=== PATIENT | female | born 1960 | race Caucasian/White ===

== ENCOUNTER → 2016-08-13 | Outpatient (CLI) | payer OTHER ==
[~2016-08-13] MED LIST: ACET500T37 PO; AMIT25TA PO; AMLO10TA2 PO; ASPI1TAB PO; ESTR1TAB PO; FLON0.054; IBUP200C PO; IBUP800T; METO25TAB PO; MOTR200T44 PO; PERC5TAB6 PO; PROA1AER INH; SERT25TA PO; TYLE325T5 PO; VITA50TA15 PO; ZOLO50TA
--- NOTE | 2016-08-14 09:31 | DEXA ---
AP SPINE L1 - L4 1.007 -1.5 -1.0 LT FEMUR TOTAL 0.849 -1.3 -0.8 RT FEMUR TOTAL 0.899 -0.9 -0.4 TOTAL BODY TOTAL OTHER DUAL FEMUR FRAX* ASSESSMENT Risk factors: Premature menopause. 10 year probability of fracture Major osteoporotic fracture 7.2 % Hip fracture 0.8 % COMMENTS: There is low bone density of the spine and hips. The density of the spine has decreased 6.9% since 07/18/2001. The density of the left hip has increased 4.4% since 07/18/2001. The density of the right hip has increased 1.4% since 07/18/2001. FOLLOW-UP: Recommendation for the next bone density exam: 2 years. KATHY
== END ==
LOC: M WHC 12:43
PROVIDERS: ATTEND Obstetrics & Gynecology
DX: Z13.820 Encounter for screening for osteoporosis (principal)

== ENCOUNTER → 2016-08-16 | Outpatient (CLI) | payer OTHER ==
--- NOTE | 2016-08-16 15:49 | REP ---
Digital diagnostic bilateral mammography and focused left breast sonography: History: Palpable left breast lump 1 cm in diameter at 3 o'clock position at the outer areolar complex. No comparison imaging. Mammographic findings: Routine views of the left breast were obtained with skin marker affixed to the skin at the site of the palpable lump. These are augmented by magnified focal spot compression CC, MLO and true MLO views of the left breast. These demonstrate that the breast parenchyma is heterogeneously dense bilaterally in a pattern, which may inhibit the sensitivity of mammography. No dominant density is seen at the site of the palpable lump in the left breast or elsewhere on either side mammographically. No architectural distortion is seen. No spiculation or suspicious microcalcification is seen. No worrisome skin change is appreciated. Sonographic findings: The left breast is scanned from 12 o'clock to 3 o'clock. At 3 o'clock just adjacent to the nipple, there is a 6 x 5 x 4 mm cyst with slightly thickened kang. This likely corresponds to the palpable abnormality. It does not meet criteria of a simple cyst and is probably a complex cyst. Heterogeneous fibroglandular background echotexture is seen. Impression: BIRADS category 4 suspicious left breast imaging. Complex cystic structure is seen at the site of the palpable lump by ultrasound in the left breast at 3 o'clock position. Ultrasound-guided cyst aspiration and/or needle biopsy suggested. This mammogram was interpreted with the aid of an FDA-approved computer-aided detection system. The patient states she/he had a clinical breast exam in July 2016 The patient letter being requested is m 4 dense . Signed by Leo Foster MD 08/16/2016 04:49 P
== END ==
LOC: M RAD 13:24
PROVIDERS: ATTEND Obstetrics & Gynecology
DX: Z12.31 Encounter for screening mammogram for malignant neoplasm of breast (principal)

== ENCOUNTER → 2016-10-24 | Outpatient (REF) | payer OTHER ==
[~2016-10-24] MED LIST changes: +ACET-683 PO; -ACET500T37 PO; -IBUP200C PO; +IBUP200C10 PO; +PERC5TAB12 PO; -PERC5TAB6 PO; -PROA1AER INH; +PROAAER10 INH; +ZITHTAB PO
[2016-10-24 17:13] LABS: ALBUMIN/GLOBULIN RATIO 1.03 (1.00-1.93); ALKALINE PHOSPHATASE 95 U/L (45-117); ALT/SGPT 26 U/L (12-78); ANION GAP 6 MEQ/L (8-16); AST/SGOT 14 U/L (15-37); BASO % 0.3 % (0.0-1.0); BILIRUBIN,TOTAL 0.5 MG/DL (0.2-1.0); BLOOD UREA NITROGEN 10 MG/DL (7-18); CALCIUM LEVEL 9.5 MG/DL (8.5-10.1); CARBON DIOXIDE LEVEL 30 MEQ/L (21-32); CHLORIDE LEVEL 106 MEQ/L (98-107); CHOLESTEROL LEVEL 227 MG/DL (<200); CREATININE FOR GFR 0.77 MG/DL (0.55-1.02); EOS # 0.2 K/mm3 (0.0-0.50); EOS % 2.8 % (0.0-3.0); FREE T4 1.01 NG/DL (0.76-1.46); GLOMERULAR FILTRATION RATE > 60.0 (>51); GLUCOSE, FASTING 89 MG/DL (70-105); LARGE UNSTAINED CELL # 0.1 K/mm3 (0.0-0.4); LARGE UNSTAINED CELL % 1.5 % (0.0-4.0); LYMPH # 1.5 K/mm3 (1.5-4.5); LYMPH % 21.2 % (24.0-44.0); MEAN CORPUSCULAR HEMOGLOBIN 29.7 pg (27.0-33.0); MEAN CORPUSCULAR HGB CONC 32.9 g/dl (32.0-36.5); MEAN CORPUSCULAR VOLUME 90.3 fl (80.0-96.0); MONO # 0.3 K/mm3 (0.0-0.8); MONO % 4.9 % (0.0-5.0); NEUTROPHILS # 4.7 K/mm3 (1.8-7.7); NEUTROPHILS % 69.3 % (36.0-66.0); PLATELET COUNT, AUTOMATED 232 k/mm3 (150-450); POTASSIUM SERUM 4.2 MEQ/L (3.5-5.1); RED CELL DISTRIBUTION WIDTH 13.2 % (11.5-14.5); SODIUM LEVEL 142 MEQ/L (136-145); TOTAL PROTEIN 7.9 GM/DL (6.4-8.2); TRIGLYCERIDES LEVEL 190 MG/DL (<150); VITAMIN B12 LEVEL 1118 PG/ML (247-911); WHITE BLOOD COUNT 6.8 K/mm3 (4.0-10.0)
== END ==
LOC: M SFHCCAPE 10:54
PROVIDERS: ATTEND Physician Assistant
DX: I10 Essential (primary) hypertension (principal); R53.81 Other malaise

== ENCOUNTER → 2016-10-30 | Outpatient (REF) | payer OTHER ==
[2016-10-30 14:38] LABS: FOLLICLE STIMULATING HORMONE 67.3 mIU/mL; LUTEINIZING HORMONE 33.6 mIU/mL
== END ==
LOC: M LAB REF 13:49
PROVIDERS: ATTEND Obstetrics & Gynecology
DX: N95.9 Unspecified menopausal and perimenopausal disorder (principal)

== ENCOUNTER 2017-01-04 16:42 | Emergency (ER) | payer OTHER ==
[~2017-01-04] VITALS: Ht 170.2 cm; Wt 79.5 kg
[~2017-01-04 16:42] MED LIST changes: -ZITHTAB PO
[2017-01-04] MEDS ORDERED: ZITHTAB PO (18:37)
[2017-01-04 18:44] VITALS: BP 166/86
== END 2017-01-04 18:47 | disposition home or self-care (01) ==
LOC: M ED 16:42
DX: J20.9 Acute bronchitis, unspecified (principal); I10 Essential (primary) hypertension; G43.909 Migraine, unspecified, not intractable, without status migrainosus; J45.990 Exercise induced bronchospasm; Z79.899 Other long term (current) drug therapy; Z88.0 Allergy status to penicillin; Z88.8 Allergy status to other drugs, medicaments and biological substances; Z88.5 Allergy status to narcotic agent; Z91.89 Other specified personal risk factors, not elsewhere classified; Z91.040 Latex allergy status; Z91.013 Allergy to seafood; Z88.2 Allergy status to sulfonamides; Z88.1 Allergy status to other antibiotic agents

== ENCOUNTER → 2017-01-09 | Outpatient (CLI) | payer OTHER ==
[~2017-01-09] MED LIST changes: +ZITHTAB PO
--- NOTE | 2017-01-09 16:00 | REP ---
Chest two views HISTORY: Bronchitis Comparison: 04/19/2005 Linear densities are present in the left lower lobe consistent with scar. The right lung is clear. The heart is normal in size. The pulmonary vasculature is normal in appearance. The bony structure is intact. IMPRESSION: Left lower lobe scar. Signed by Yazan Sun MD 01/09/2017 03:51 P
== END ==
LOC: M RAD 14:58
PROVIDERS: ATTEND Physician Assistant
DX: J40 Bronchitis, not specified as acute or chronic (principal)

== ENCOUNTER → 2017-04-26 | Outpatient (REF) | payer OTHER ==
[2017-04-26 15:38] LABS: PROGESTERONE 1.6 NG/ML
[2017-04-26 15:39] LABS: ESTRADIOL 54.6 PG/ML; FOLLICLE STIMULATING HORMONE 21.5 mIU/mL
[2017-04-30 00:06] LABS: TESTOSTERONE FREE (DIRECT) 3.2 pg/mL (0.0-4.2)
== END ==
LOC: M LAB REF 14:51
DX: N95.1 Menopausal and female climacteric states (principal)

== ENCOUNTER → 2017-04-30 | Outpatient (REF) | payer OTHER ==
[2017-04-30 20:18] LABS: BASO % 0.4 % (0.0-1.0); EOS # 0.3 10^3/uL (0.0-0.50); EOS % 4.6 % (0.0-3.0); HEMATOCRIT 40.6 % (36.0-47.0); HEMOGLOBIN 13.6 g/dl (12.0-16.0); IMMATURE GRANULOCYTE % 0.2 % (0-3.0); LYMPH # 1.3 10^3/uL (1.5-4.5); LYMPH % 23.8 % (24.0-44.0); MEAN CORPUSCULAR HEMOGLOBIN 29.6 pg (27.0-33.0); MEAN CORPUSCULAR HGB CONC 33.5 g/dl (32.0-36.5); MEAN CORPUSCULAR VOLUME 88.5 fl (80.0-96.0); MONO # 0.5 10^3/uL (0.0-0.8); MONO % 8.5 % (0.0-5.0); NEUTROPHILS # 3.5 10^3/uL (1.8-7.7); NEUTROPHILS % 62.5 % (36.0-66.0); PLATELET COUNT, AUTOMATED 267 10^3/uL (150-450); RED BLOOD COUNT 4.59 10^6/uL (4.00-5.40); RED CELL DISTRIBUTION WIDTH 13.1 % (11.5-14.5); WHITE BLOOD COUNT 5.6 10^3/uL (4.0-10.0)
[2017-04-30 20:30] LABS: TOTAL 25(OH) VITAMIN D 44.2 NG/ML (30.0-100.0)
[2017-04-30 20:35] LABS: ALBUMIN 3.9 GM/DL (3.2-5.2); ALBUMIN/GLOBULIN RATIO 1.08 (1.00-1.93); ALKALINE PHOSPHATASE 85 U/L (45-117); ALT/SGPT 20 U/L (12-78); ANION GAP 8 MEQ/L (8-16); AST/SGOT 16 U/L (7-37); BILIRUBIN,TOTAL 0.4 MG/DL (0.2-1.0); BLOOD UREA NITROGEN 10 MG/DL (7-18); C REACTIVE PROTEIN QUANTITATIV 1.21 MG/DL (0.00-0.30); CALCIUM LEVEL 8.7 MG/DL (8.5-10.1); CARBON DIOXIDE LEVEL 24 MEQ/L (21-32); CHLORIDE LEVEL 108 MEQ/L (98-107); CHOLESTEROL LEVEL 168 MG/DL (<200); CHOLESTEROL RISK RATIO 3.111 (<5); FREE T4 0.89 NG/DL (0.76-1.46); GLOMERULAR FILTRATION RATE > 60.0 (>51); GLUCOSE, FASTING 99 MG/DL (70-100); HDL CHOLESTEROL 54 MG/DL (>40); LDL CHOLESTEROL 98.4 MG/DL (<100); NON-HDL-C 114 MG/DL; POTASSIUM SERUM 4.3 MEQ/L (3.5-5.1); RHEUMATOID FACTOR QUANT < 10.0 IU/ML (0-15.0); SODIUM LEVEL 140 MEQ/L (136-145); TOTAL PROTEIN 7.5 GM/DL (6.4-8.2); TRIGLYCERIDES LEVEL 78 MG/DL (<150); URIC ACID 4.9 MG/DL (2.6-6.0)
[2017-04-30 20:58] LABS: ERYTHROCYTE SEDIMENTATION RATE 29 mm/hr (0-30)
[2017-05-03 00:06] LABS: CYCLIC CITRULLINATED PEPTIDE 5 units (0-19)
[2017-05-03 00:06] LABS: ANTINUCLEAR ANTIBODIES DIRECT Negative (Negative); Lyme Disease IgG/IgM Antibodie <0.91 ISR (0.00-0.90); Lyme Disease IgM Ab Quantitati <0.80 index (0.00-0.79)
== END ==
LOC: M SFHCCAPE 09:16
DX: M25.50 Pain in unspecified joint (principal); I10 Essential (primary) hypertension

== ENCOUNTER → 2017-05-02 | Outpatient (CLI) | payer OTHER | LOC: M LAB 12:58 | DX: M51.36 Other intervertebral disc degeneration, lumbar region (principal); M25.50 Pain in unspecified joint | CPT/HCPCS: 72110 ==

== ENCOUNTER → 2017-07-10 | Outpatient (REF) | LOC: M SMT 09:32 | DX: Z02.71 Encounter for disability determination (principal); M51.36 Other intervertebral disc degeneration, lumbar region; M25.78 Osteophyte, vertebrae ==

== ENCOUNTER → 2018-01-09 | Outpatient (REF) | payer OTHER ==
[2018-01-09 19:40] LABS: BASO % 0.5 % (0.0-1.0); EOS # 0.2 10^3/uL (0.0-0.50); EOS % 3.8 % (0.0-3.0); HEMATOCRIT 39.1 % (36.0-47.0); IMMATURE GRANULOCYTE % 0.2 % (0-3.0); LYMPH # 1.4 10^3/uL (1.5-4.5); LYMPH % 21.2 % (24.0-44.0); MEAN CORPUSCULAR HEMOGLOBIN 29.1 pg (27.0-33.0); MEAN CORPUSCULAR HGB CONC 33.2 g/dl (32.0-36.5); MEAN CORPUSCULAR VOLUME 87.7 fl (80.0-96.0); MONO # 0.5 10^3/uL (0.0-0.8); MONO % 7.1 % (0.0-5.0); NEUTROPHILS # 4.3 10^3/uL (1.8-7.7); NEUTROPHILS % 67.2 % (36.0-66.0); PLATELET COUNT, AUTOMATED 263 10^3/uL (150-450); RED BLOOD COUNT 4.46 10^6/uL (4.00-5.40); RED CELL DISTRIBUTION WIDTH 14.4 % (11.5-14.5); WHITE BLOOD COUNT 6.4 10^3/uL (4.0-10.0)
[2018-01-09 20:04] LABS: ALBUMIN 3.5 GM/DL (3.2-5.2); ALKALINE PHOSPHATASE 91 U/L (45-117); ALT/SGPT 21 U/L (12-78); ANION GAP 9 MEQ/L (8-16); AST/SGOT 16 U/L (7-37); BILIRUBIN,TOTAL 0.3 MG/DL (0.2-1.0); BLOOD UREA NITROGEN 7 MG/DL (7-18); C REACTIVE PROTEIN QUANTITATIV 1.47 MG/DL (0.00-0.30); CALCIUM LEVEL 8.6 MG/DL (8.5-10.1); CARBON DIOXIDE LEVEL 26 MEQ/L (21-32); CHLORIDE LEVEL 106 MEQ/L (98-107); CHOLESTEROL LEVEL 188 MG/DL (<200); CHOLESTEROL RISK RATIO 3.836 (<5); GLOMERULAR FILTRATION RATE > 60.0 (>51); GLUCOSE, FASTING 87 MG/DL (70-100); HDL CHOLESTEROL 49 MG/DL (>40); LDL CHOLESTEROL 97 MG/DL (<100); NON-HDL-C 139 MG/DL; POTASSIUM SERUM 4.3 MEQ/L (3.5-5.1); RHEUMATOID FACTOR QUANT < 10.0 IU/ML (<15.0); SODIUM LEVEL 141 MEQ/L (136-145); TOTAL 25(OH) VITAMIN D 22.9 NG/ML (30.0-100.0); TRIGLYCERIDES LEVEL 209 MG/DL (<150)
[2018-01-09 20:07] LABS: ERYTHROCYTE SEDIMENTATION RATE 30 mm/hr (0-30)
[2018-01-13 00:07] LABS: CYCLIC CITRULLINATED PEPTIDE 6 units (0-19)
[2018-01-13 00:07] LABS: SSA SJOGRENS A <0.2 AI (0.0-0.9); SSB SJOGRENS B <0.2 AI (0.0-0.9)
== END ==
LOC: M SFHCCAPE 09:27
DX: I10 Essential (primary) hypertension (principal); M25.50 Pain in unspecified joint

== ENCOUNTER 2018-08-13 11:54 | Day surgery (SDC) | payer OTHER ==
[~2018-08-13] VITALS: Ht 160 cm; Wt 83.4 kg
[~2018-08-13 11:54] MED LIST changes: +ALBU1.25 INH; -AMLO10TA2 PO; +AMLO10TA5 PO; -ASPI1TAB PO; +ASPI81TA26 PO; +GABA-843 PO; -IBUP200C10 PO; +IBUP200C25 PO; +METO1TAB63 PO; +METO1TAB87 PO; -METO25TAB PO; +NS 1,000 ML IV ONE; +OMEP-221 PO; +OSEL75CA PO; +PRED20TA PO; -SERT25TA PO; +SERT25TA85 PO; +TESS100C PO; +TIZA2CAP PO; +VITA500T3 PO; +ZOLO100T PO
[2018-08-13] MEDS ORDERED: VITAD1000T PO (13:02)
[2018-08-13] MEDS ORDERED: PROPOFOL 200 MG/20 ML VIAL As Ordered ONE (14:13)
[2018-08-13] MEDS ORDERED: LIDOCAINE 2% INJ 100 MG/5 ML SDV (FOR ANES.) As Ordered ONE (14:13)
--- NOTE | 2018-08-13 14:37 | ROOR ---
Patient Name: Nikki Jenkins Procedure Date: 08/13/2018 2:07 PM Date of : 1960 Age: 58 Room: [facility] Gender: Female Note Status: Finalized Procedure: Colonoscopy Indications: Screening for colorectal malignant neoplasm Providers: Robert Ga MD Referring MD: THUAN Jade [id number] Requesting Provider: Medicines: Monitored Anesthesia Care Complications: No immediate complications. Procedure: Pre-Anesthesia Assessment: - Prior to the procedure, a History and Physical was performed, and patient medications and allergies were reviewed. The patient is competent. The risks and benefits of the procedure and the sedation options and risks were discussed with the patient. All questions were answered and informed consent was obtained. Patient identification and proposed procedure were verified by the physician, the nurse and the anesthesiologist in the endoscopy suite. Mental Status Examination: alert and oriented. Airway Examination: normal oropharyngeal airway and neck mobility. Respiratory Examination: clear to auscultation. CV Examination: normal. Prophylactic Antibiotics: The patient does not require prophylactic antibiotics. Prior Anticoagulants: The patient has taken aspirin, last dose was 1 day prior to procedure. ASA Grade Assessment: II - A patient with mild systemic disease. After reviewing the risks and benefits, the patient was deemed in satisfactory condition to undergo the procedure. The anesthesia plan was to use monitored anesthesia care (MAC). Immediately prior to administration of medications, the patient was re-assessed for adequacy to receive sedatives. The heart rate, respiratory rate, oxygen saturations, blood pressure, adequacy of pulmonary ventilation, and response to care were monitored throughout the procedure. The physical status of the patient was re-assessed after the procedure. The Colonoscope was introduced through the anus and advanced to the cecum, identified by appendiceal orifice and ileocecal valve. The colonoscopy was performed without difficulty. The colonoscopy was somewhat difficult due to a tortuous colon. Successful completion of the procedure was aided by applying abdominal pressure. The patient tolerated the procedure well. The quality of the bowel preparation was good. Findings: Hemorrhoids were found on perianal exam. A few small-mouthed diverticula were found in the sigmoid colon. The entire examined colon appeared normal on direct and retroflexion views. Impression: - Hemorrhoids found on perianal exam. - Diverticulosis in the sigmoid colon. - The entire examined colon is normal on direct and retroflexion views. - No specimens collected. Recommendation: - Discharge patient to home (ambulatory). - Repeat colonoscopy in 10 years for screening purposes. Robert Ga MD Robert Ga MD 08/13/2018 2:37:04 PM Electronically signed by Robert Ga MD Number of Addenda: 0 Note Initiated On: 08/13/2018 2:07 PM Estimated Blood Loss: Estimated blood loss: none.
[2018-08-13 14:57] VITALS: BP 129/80
== END 2018-08-13 15:15 | disposition home or self-care (01) ==
LOC: M OPP 11:54
PROVIDERS: ATTEND Surgery
DX: K57.30 Diverticulosis of large intestine without perforation or abscess without bleeding (principal); K64.9 Unspecified hemorrhoids; Z12.11 Encounter for screening for malignant neoplasm of colon

== ENCOUNTER → 2018-10-14 | Outpatient (REF) ==
[~2018-10-14] MED LIST changes: +CYAN500T8 PO; -NS 1,000 ML IV ONE; -VITA500T3 PO; +VITAD1000T PO
--- NOTE | 2018-10-15 02:02 | REP ---
Clinical: Neck pain. Technique: AP, lateral, open mouth views of the cervical spine. Findings: Alignment and lordosis maintained. Vertebral bodies intact. Disc space is normal. Spinal canal appears patent. Posterior elements appear normal and aligned. Surrounding soft tissues are unremarkable. Impression: Normal cervical spine radiographs Electronically Signed by oDug Ramos MD 10/15/2018 01:54 A
--- NOTE | 2018-10-15 02:49 | REP ---
Clinical: Pain and disability. Technique: Internal rotation, external rotation, and Y view of the right shoulder. Findings: Chronic low out resorption of the distal clavicle with widening to the residual acromioclavicular joint is suggested. The subacromial space is normal. The glenohumeral joint is normal. The surrounding soft tissues are unremarkable. Impression: Degenerative changes to the acromioclavicular joint. Electronically Signed by Doug Ramos MD 10/15/2018 02:41 A
== END ==
LOC: M SMT 13:06
PROVIDERS: ATTEND Internal Medicine
DX: Z00.00 Encounter for general adult medical examination without abnormal findings (principal)

== ENCOUNTER → 2018-11-05 | Outpatient (CLI) | payer OTHER ==
--- NOTE | 2018-11-05 12:12 | REP ---
CT of the sinuses without contrast Indication: Chronic pansinusitis. Comparison: None Technique: Axial CT of the maxillofacial bones were performed without contrast. Bone reformatted images were provided in the axial and coronal planes. Findings: Frontal sinuses: Clear bilaterally. Ethmoid air cells: Clear bilaterally. Sphenoid sinuses: Right sphenoid sinus is clear. There is mild mucosal thickening of the left sphenoid sinus inferiorly. The sphenoid septum inserts on the left. Maxillary sinuses: Clear bilaterally. The ostiomeatal units are patent. Nasal passages and septum: There is leftward deviation of the nasal septum posteriorly with left sided spur. There is rightward deviation of the nasal septum anteriorly. The nasal turbinates are normal in appearance. Mastoid air cells: Clear bilaterally. Other: The cribriform plate and fovea ethmoidalis are intact. Impression: Mild mucosal thickening of the left sphenoid sinus. Leftward deviation the nasal septum with posteriorly with left-sided spur and the right or deviation of the nasal septum anteriorly. Electronically Signed by Catracho Eng MD 11/05/2018 10:43 A
== END ==
LOC: M RAD 10:01
PROVIDERS: ATTEND Otolaryngology
DX: J32.4 Chronic pansinusitis (principal); J34.2 Deviated nasal septum

== ENCOUNTER → 2018-11-12 | Outpatient (REF) | payer OTHER ==
[~2018-11-12] MED LIST changes: +CHOL100029 PO; -VITAD1000T PO
[2018-11-12 13:32] LABS: ALBUMIN 3.6 GM/DL (3.2-5.2); ALT/SGPT 25 U/L (12-78); BILIRUBIN,TOTAL 0.3 MG/DL (0.2-1.0); BLOOD UREA NITROGEN 9 MG/DL (7-18); CALCIUM LEVEL 8.7 MG/DL (8.5-10.1); CARBON DIOXIDE LEVEL 26 MEQ/L (21-32); CHLORIDE LEVEL 107 MEQ/L (98-107); CHOLESTEROL LEVEL 178 MG/DL (<200); CHOLESTEROL RISK RATIO 3.122 (<5); CREATININE FOR GFR 0.84 MG/DL (0.55-1.30); GLOMERULAR FILTRATION RATE > 60.0 (>51); GLUCOSE, FASTING 91 MG/DL (70-100); HDL CHOLESTEROL 57 MG/DL (>40); LDL CHOLESTEROL 84 MG/DL (<100); NON-HDL-C 121 MG/DL; POTASSIUM SERUM 4.3 MEQ/L (3.5-5.1); SODIUM LEVEL 140 MEQ/L (136-145); TOTAL PROTEIN 7.2 GM/DL (6.4-8.2); TRIGLYCERIDES LEVEL 184 MG/DL (<150)
== END ==
LOC: M LABDRAW1 11:40 → M SFHCCAPE 11:40
PROVIDERS: ATTEND Physician Assistant
DX: I10 Essential (primary) hypertension (principal)

== ENCOUNTER → 2019-06-25 | Outpatient (REF) | payer OTHER ==
[2019-06-25 15:47] LABS: BASO % 0.3 % (0.0-1.0); EOS # 0.2 10^3/uL (0.0-0.5); EOS % 3.4 % (0.0-3.0); HEMATOCRIT 40.5 % (36.0-47.0); HEMOGLOBIN 13.2 g/dl (12.0-15.5); LYMPH # 1.9 10^3/uL (1.5-5.0); LYMPH % 27.6 % (24.0-44.0); MEAN CORPUSCULAR HEMOGLOBIN 28.4 pg (27.0-33.0); MEAN CORPUSCULAR HGB CONC 32.6 g/dl (32.0-36.5); MEAN CORPUSCULAR VOLUME 87.3 fl (80.0-96.0); MONO # 0.5 10^3/uL (0.0-0.8); MONO % 7.7 % (0.0-5.0); NEUTROPHILS # 4.3 10^3/uL (1.5-8.5); NEUTROPHILS % 60.7 % (36.0-66.0); PLATELET COUNT, AUTOMATED 233 10^3/uL (150-450); RED BLOOD COUNT 4.64 10^6/uL (4.00-5.40)
[2019-06-25 16:09] LABS: ALBUMIN 3.9 GM/DL (3.2-5.2); ALT/SGPT 23 U/L (12-78); BILIRUBIN,TOTAL 0.4 MG/DL (0.2-1.0); BLOOD UREA NITROGEN 12 MG/DL (7-18); CALCIUM LEVEL 9.3 MG/DL (8.5-10.1); CARBON DIOXIDE LEVEL 28 MEQ/L (21-32); CHLORIDE LEVEL 105 MEQ/L (98-107); CHOLESTEROL LEVEL 242 MG/DL (<200); CHOLESTEROL RISK RATIO 3.903 (<5); CREATININE FOR GFR 0.86 MG/DL (0.55-1.30); FREE T4 0.87 NG/DL (0.76-1.46); GLOMERULAR FILTRATION RATE > 60.0 (>51); GLUCOSE, FASTING 81 MG/DL (70-100); HDL CHOLESTEROL 62 MG/DL (>40); LDL CHOLESTEROL 130 MG/DL (<100); NON-HDL-C 180 MG/DL; SODIUM LEVEL 138 MEQ/L (136-145); TOTAL 25(OH) VITAMIN D 35.2 NG/ML (30.0-100.0); TOTAL PROTEIN 7.7 GM/DL (6.4-8.2); TRIGLYCERIDES LEVEL 250 MG/DL (<150)
== END ==
LOC: M LABDRAW1 15:33
PROVIDERS: ATTEND Physician Assistant
DX: F32.2 Major depressive disorder, single episode, severe without psychotic features (principal); E78.2 Mixed hyperlipidemia; E55.9 Vitamin D deficiency, unspecified

== ENCOUNTER → 2020-05-30 | Outpatient (REF) | payer OTHER ==
[~2020-05-30] MED LIST changes: -AMIT25TA PO; +AMIT25TA17 PO; -AMLO10TA5 PO; +AMLO1TAB25 PO; +CYAN500T14 PO; -CYAN500T8 PO; +GABA-282 PO; -GABA-843 PO
[2020-05-30 16:39] LABS: BASO % 0.4 % (0.0-1.0); EOS # 0.2 10^3/uL (0.0-0.5); EOS % 2.8 % (0.0-3.0); HEMATOCRIT 40.4 % (36.0-47.0); HEMOGLOBIN 12.8 g/dl (12.0-15.5); LYMPH # 1.8 10^3/uL (1.5-5.0); MEAN CORPUSCULAR HEMOGLOBIN 27.4 pg (27.0-33.0); MEAN CORPUSCULAR HGB CONC 31.7 g/dl (32.0-36.5); MEAN CORPUSCULAR VOLUME 86.5 fl (80.0-96.0); MONO # 0.6 10^3/uL (0.0-0.8); MONO % 7.4 % (2.0-8.0); NEUTROPHILS # 5.3 10^3/uL (1.5-8.5); NEUTROPHILS % 65.9 % (36.0-66.0); PLATELET COUNT, AUTOMATED 257 10^3/uL (150-450); RED BLOOD COUNT 4.67 10^6/uL (4.00-5.40)
[2020-05-30 17:09] LABS: ALBUMIN 3.8 GM/DL (3.2-5.2); ALT/SGPT 22 U/L (12-78); BILIRUBIN,TOTAL 0.3 MG/DL (0.2-1.0); BLOOD UREA NITROGEN 14 MG/DL (7-18); CALCIUM LEVEL 9.3 MG/DL (8.5-10.1); CARBON DIOXIDE LEVEL 30 MEQ/L (21-32); CHLORIDE LEVEL 106 MEQ/L (98-107); CHOLESTEROL LEVEL 208 MG/DL (<200); CHOLESTEROL RISK RATIO 3.525 (<5); CREATININE FOR GFR 0.75 MG/DL (0.55-1.30); GLOMERULAR FILTRATION RATE > 60.0 (>51); GLUCOSE, FASTING 95 MG/DL (70-100); HDL CHOLESTEROL 59 MG/DL (>40); LDL CHOLESTEROL 115 MG/DL (<100); NON-HDL-C 149 MG/DL; POTASSIUM SERUM 4.2 MEQ/L (3.5-5.1); SODIUM LEVEL 141 MEQ/L (136-145); TOTAL PROTEIN 7.4 GM/DL (6.4-8.2); TRIGLYCERIDES LEVEL 171 MG/DL (<150)
[2020-05-30 17:10] LABS: TOTAL 25(OH) VITAMIN D 32.2 NG/ML (30.0-100.0)
== END ==
LOC: M SFHCCLAY 11:43
PROVIDERS: ATTEND Physician Assistant
DX: E78.2 Mixed hyperlipidemia (principal); E55.9 Vitamin D deficiency, unspecified

== ENCOUNTER → 2020-12-29 | Outpatient (REF) | payer MEDICARE, OTHER | LOC: M SFHCCAPE 10:48 | PROVIDERS: ATTEND Physician Assistant | DX: J06.9 Acute upper respiratory infection, unspecified (principal) | CPT/HCPCS: 87426; G0463; U0003 ==

== ENCOUNTER → 2021-03-14 | Outpatient (REF) | payer MEDICARE, OTHER ==
[~2021-03-14] MED LIST changes: -OMEP-221 PO; +OMEP40CA5 PO
== END ==
LOC: M SFHCCAPE 12:02
PROVIDERS: ATTEND Physician Assistant
DX: J22 Unspecified acute lower respiratory infection (principal)
CPT/HCPCS: G0463; U0003

== ENCOUNTER → 2021-04-11 | Outpatient (CLI) | payer MEDICARE, OTHER | LOC: M SOG 04-10 15:16 | PROVIDERS: ATTEND Orthopaedic Surgery Adult Reconstructive Orthopaedic Surgery | DX: M25.552 Pain in left hip (principal); M25.562 Pain in left knee ==

== ENCOUNTER → 2021-07-05 | Outpatient (CLI) | payer MEDICARE, OTHER | LOC: M PLAIMG 12:46 | PROVIDERS: ATTEND Orthopaedic Surgery Adult Reconstructive Orthopaedic Surgery | DX: M94.262 Chondromalacia, left knee (principal); M71.22 Synovial cyst of popliteal space [Baker], left knee; M23.92 Unspecified internal derangement of left knee ==

== ENCOUNTER 2021-07-19 12:24 | Emergency (ER) | payer MEDICARE, OTHER ==
[~2021-07-19] VITALS: Ht 170.2 cm; Wt 84.1 kg
[2021-07-19 12:25] VITALS: BP 136/88
[2021-07-19] MEDS ORDERED: LYRI75CA PO (12:46)
[2021-07-19] MEDS ORDERED: ASPI81CH33 PO (12:46)
[2021-07-19] MEDS ORDERED: IBUP200C25 PO (12:46)
[2021-07-19] MEDS ORDERED: HYDR-3363 PO (12:46)
[2021-07-19] MEDS ORDERED: TOPA1TAB PO (12:46)
[2021-07-19 14:08] LABS: BASO % 0.3 % (0.0-1.0); EOS # 0.2 10^3/uL (0.0-0.5); EOS % 2.3 % (0.0-3.0); HEMATOCRIT 42.4 % (36.0-47.0); LYMPH # 1.7 10^3/uL (1.5-5.0); LYMPH % 16.5 % (24.0-44.0); MEAN CORPUSCULAR HEMOGLOBIN 28.4 pg (27.0-33.0); MONO # 0.8 10^3/uL (0.0-0.8); MONO % 8.3 % (2.0-8.0); NEUTROPHILS # 7.3 10^3/uL (1.5-8.5); NEUTROPHILS % 72.3 % (36.0-66.0); PLATELET COUNT, AUTOMATED 218 10^3/uL (150-450); RED BLOOD COUNT 4.93 10^6/uL (4.00-5.40); WHITE BLOOD COUNT 10.1 10^3/uL (4.0-10.0)
[2021-07-19] MEDS ORDERED: METR-265 PO ×2 (14:17→14:22)
[2021-07-19] MEDS ORDERED: DIFL200T PO ×2 (14:17→14:22)
[2021-07-19] MEDS ORDERED: CEFU50TA PO ×2 (14:17→14:22)
[2021-07-19 14:29] LABS: BLOOD UREA NITROGEN 13 MG/DL (7-18); C REACTIVE PROTEIN QUANTITATIV 7.19 MG/DL (0.00-0.30); CALCIUM LEVEL 9.9 MG/DL (8.5-10.1); CARBON DIOXIDE LEVEL 25 MEQ/L (21-32); CHLORIDE LEVEL 110 MEQ/L (98-107); CREATININE FOR GFR 0.83 MG/DL (0.55-1.30); GLOMERULAR FILTRATION RATE > 60.0 (>51); GLUCOSE, FASTING 98 MG/DL (70-100); POTASSIUM SERUM 3.9 MEQ/L (3.5-5.1); SODIUM LEVEL 142 MEQ/L (136-145)
[2021-07-19 14:39] LABS: ERYTHROCYTE SEDIMENTATION RATE 46 mm/hr (0-30)
== END 2021-07-19 14:35 | disposition home or self-care (01) ==
LOC: M ED 12:24
DX: K04.7 Periapical abscess without sinus (principal); I10 Essential (primary) hypertension; K21.9 Gastro-esophageal reflux disease without esophagitis; J45.909 Unspecified asthma, uncomplicated; Z88.2 Allergy status to sulfonamides; Z88.8 Allergy status to other drugs, medicaments and biological substances; Z91.040 Latex allergy status; Z79.899 Other long term (current) drug therapy

== ENCOUNTER → 2022-01-11 | Outpatient (CLI) | payer MEDICARE, OTHER ==
[~2022-01-11] MED LIST changes: +ASPI81CH33 PO; +CEFU50TA PO; +DIFL200T PO; +HYDR-3363 PO; +LYRI75CA PO; +METR-265 PO; +TOPA1TAB PO
== END ==
LOC: M SOG 07:55
PROVIDERS: ATTEND Orthopaedic Surgery
DX: M25.511 Pain in right shoulder (principal); M47.22 Other spondylosis with radiculopathy, cervical region

== ENCOUNTER → 2022-02-09 | Outpatient (CLI) | payer MEDICARE, OTHER | LOC: M PLAIMG 13:44 | PROVIDERS: ATTEND Orthopaedic Surgery | DX: M17.12 Unilateral primary osteoarthritis, left knee (principal); M25.511 Pain in right shoulder; M67.813 Other specified disorders of tendon, right shoulder; M50.222 Other cervical disc displacement at C5-C6 level ==

== ENCOUNTER → 2022-03-07 | Outpatient (CLI) | payer MEDICARE, OTHER ==
[~2022-03-07] MED LIST changes: +ISOVUE-300 61% 50ML VIAL As Ordered ONE; +LIDOCAINE 1% MDV 20ML VIAL As Ordered ONE; +PROHANCE 279.3MG/ML 5ML VIAL As Ordered ONE
== END ==
LOC: M RAD 06:21
PROVIDERS: ATTEND Orthopaedic Surgery Adult Reconstructive Orthopaedic Surgery
DX: M24.852 Other specific joint derangements of left hip, not elsewhere classified (principal); M70.62 Trochanteric bursitis, left hip
CPT/HCPCS: 27093; 73723; 77002; A9576; Q9967

== ENCOUNTER → 2022-03-07 | Outpatient (CLI) | payer MEDICARE, OTHER ==
[~2022-03-07] MED LIST changes: -ISOVUE-300 61% 50ML VIAL As Ordered ONE; -LIDOCAINE 1% MDV 20ML VIAL As Ordered ONE; -PROHANCE 279.3MG/ML 5ML VIAL As Ordered ONE
[2022-03-07 09:50] LABS: BASO % 0.1 % (0.0-1.0); HEMATOCRIT 40.9 % (36.0-47.0); HEMOGLOBIN 13.1 g/dl (12.0-15.5); LYMPH # 0.9 10^3/uL (1.5-5.0); LYMPH % 10.7 % (24.0-44.0); MEAN CORPUSCULAR HEMOGLOBIN 27.3 pg (27.0-33.0); MEAN CORPUSCULAR VOLUME 85.2 fl (80.0-96.0); MONO # 0.1 10^3/uL (0.0-0.8); MONO % 0.7 % (2.0-8.0); NEUTROPHILS % 87.9 % (36.0-66.0); PLATELET COUNT, AUTOMATED 212 10^3/uL (150-450)
[2022-03-07 10:14] LABS: ALBUMIN 3.6 G/DL (3.2-5.2); ALKALINE PHOSPHATASE 131 U/L (46-116); ALT/SGPT 41 U/L (7.0-40); AST/SGOT 24 U/L (<34); BILIRUBIN,TOTAL 0.4 MG/DL (0.3-1.2); BLOOD UREA NITROGEN 19 MG/DL (9-23); CALCIUM LEVEL 9.3 MG/DL (8.3-10.6); CARBON DIOXIDE LEVEL 24 MMOL/L (20-31); CHLORIDE LEVEL 107 MMOL/L (98-107); CHOLESTEROL LEVEL 190 MG/DL (<200); CHOLESTEROL RISK RATIO 2.87 (<5); CREATININE FOR GFR 0.65 MG/DL (0.55-1.30); GLOMERULAR FILTRATION RATE > 60.0 (>45); GLUCOSE, FASTING 189 MG/DL (74-106); LDL CHOLESTEROL 109.4 MG/DL (<100); NON-HDL-C 124 MG/DL; POTASSIUM SERUM 4.2 MMOL/L (3.5-5.1); SODIUM LEVEL 141 MMOL/L (136-145); TOTAL PROTEIN 7.2 G/DL (5.7-8.2); TRIGLYCERIDES LEVEL 73 MG/DL (<150)
[2022-03-07 10:15] LABS: THYROID STIMULATING HORMONE 0.648 uIU/ML (0.55-4.78); TOTAL 25(OH) VITAMIN D 42.1 NG/ML (20.0-100.0)
== END ==
LOC: M RAD 06:27
PROVIDERS: ATTEND Physician Assistant
DX: K44.9 Diaphragmatic hernia without obstruction or gangrene (principal); R06.02 Shortness of breath; I10 Essential (primary) hypertension; F32.2 Major depressive disorder, single episode, severe without psychotic features; Z79.899 Other long term (current) drug therapy

== ENCOUNTER → 2022-04-18 | Outpatient (CLI) | payer MEDICARE ==
[~2022-04-18] MED LIST changes: +BUPIVACAINE HCL 0.5% 10ML VIAL ONE; +ISOVUE-300 61% 100ML VIAL ONE; +LIDOCAINE 1% MDV 20ML VIAL ONE; +diphenhydrAMINE 25MG CAP ONE; +methylPREDNISolone 80MG/ML SUSP 1ML VIAL ONE
== END ==
LOC: M PLAIMG 12:52
PROVIDERS: ATTEND Orthopaedic Surgery Adult Reconstructive Orthopaedic Surgery
DX: M24.152 Other articular cartilage disorders, left hip (principal)
CPT/HCPCS: 20610; 76000; J1040; Q9967

== ENCOUNTER → 2022-04-25 | Outpatient (CLI) | payer MEDICARE ==
[~2022-04-25] MED LIST changes: -BUPIVACAINE HCL 0.5% 10ML VIAL ONE; -ISOVUE-300 61% 100ML VIAL ONE; -LIDOCAINE 1% MDV 20ML VIAL ONE; -diphenhydrAMINE 25MG CAP ONE; -methylPREDNISolone 80MG/ML SUSP 1ML VIAL ONE
== END ==
LOC: M SOG 11:17
PROVIDERS: ATTEND Orthopaedic Surgery Adult Reconstructive Orthopaedic Surgery
DX: M25.552 Pain in left hip (principal); W19.XXXA Unspecified fall, initial encounter; M25.762 Osteophyte, left knee

== ENCOUNTER → 2022-05-10 | Outpatient (REF) | payer MEDICARE, OTHER | LOC: M SFHCLERA 17:16 | PROVIDERS: ATTEND Physician Assistant | DX: J02.9 Acute pharyngitis, unspecified (principal) ==

== ENCOUNTER → 2023-04-25 | Outpatient (CLI) | payer MEDICARE, OTHER ==
[~2023-04-25] MED LIST changes: -AMIT25TA17 PO; +AMIT25TA19 PO
== END ==
LOC: M PLAIMG 10:32
PROVIDERS: ATTEND Physician Assistant
DX: R91.8 Other nonspecific abnormal finding of lung field (principal)

== ENCOUNTER → 2025-01-26 | Outpatient (CLI) | payer MEDICARE, OTHER ==
[~2025-01-26] MED LIST changes: +E-Z-GAS II EFFERVESCENT PACKET (SODIUM BICARB./CITRIC ACID/SIMETHICONE) As Ordered ONE; +E-Z-HD 98% w/w 340 GM SUSP BTL As Ordered ONE; +E-Z-PAQUE 96% w/w SUSP 176 GM BTL As Ordered ONE; +GABA-1172 PO; -GABA-282 PO; +VITA100093 PO; +flovent INH
== END ==
LOC: M RAD 09:39
PROVIDERS: ATTEND Surgery
DX: K44.9 Diaphragmatic hernia without obstruction or gangrene (principal)

== ENCOUNTER 2025-01-29 08:09 | Day surgery (SDC) | payer MEDICARE, OTHER ==
[~2025-01-29] VITALS: Ht 167.6 cm; Wt 81.0 kg
[~2025-01-29 08:09] MED LIST changes: -E-Z-GAS II EFFERVESCENT PACKET (SODIUM BICARB./CITRIC ACID/SIMETHICONE) As Ordered ONE; -E-Z-HD 98% w/w 340 GM SUSP BTL As Ordered ONE; -E-Z-PAQUE 96% w/w SUSP 176 GM BTL As Ordered ONE
[2025-01-29] MEDS ORDERED: LIDOCAINE 2% 100 MG/5 ML SDV (FOR ANES.) As Ordered ONE (09:15)
[2025-01-29 09:46] VITALS: BP 155/81; TEMP 98.3; O2SAT 96
== END 2025-01-29 09:50 | disposition home or self-care (01) ==
LOC: M OPP 08:09
PROVIDERS: ATTEND Surgery
DX: K44.9 Diaphragmatic hernia without obstruction or gangrene (principal); Z88.1 Allergy status to other antibiotic agents; Z88.2 Allergy status to sulfonamides; Z88.8 Allergy status to other drugs, medicaments and biological substances; Z91.040 Latex allergy status; Z79.899 Other long term (current) drug therapy
CPT/HCPCS: 43239; 88305; J3010